=== PATIENT | female | born 1970 | race Caucasian/White ===

== ENCOUNTER 2018-07-15 09:06 | Day surgery (SDC) | payer BC ==
[~2018-07-15] VITALS: Ht 167.6 cm; Wt 87.1 kg
[~2018-07-15 09:06] MED LIST: APAP500T10 PO; LIDOCAINE 1% MDV 20ML VIAL SQ PRN; LR 1,000 ML IV ONE; NAPR-837 PO
[2018-07-15] MEDS ORDERED: BUPIVACAINE HCL 0.25% 30 ML VIAL As Ordered ONE (10:21)
[2018-07-15] MEDS ORDERED: MIDAZOLAM INJ 2 MG/2 ML VIAL (J2250) As Ordered ONE ×2 (10:21→10:23)
[2018-07-15] MEDS ORDERED: fentaNYL 100 MCG/2 ML INJECTION (J3010) As Ordered ONE ×4 (10:21→14:13)
[2018-07-15] MEDS ORDERED: LIDOCAINE 2% INJ 100 MG/5 ML SDV (FOR ANES.) As Ordered ONE (10:22)
[2018-07-15] MEDS ORDERED: ONDANSETRON 4MG/2ML VIAL (J2405) As Ordered ONE (10:22)
[2018-07-15] MEDS ORDERED: dexameTHASONE 4 MG/ML 1ML VIAL (J1100) As Ordered ONE (10:22)
[2018-07-15] MEDS ORDERED: PROPOFOL 200 MG/20 ML VIAL As Ordered ONE (10:22)
[2018-07-15 10:33] LABS: URINE PREG TEST NEGATIVE (NEGATIVE)
[2018-07-15] MEDS ORDERED: MIDAZOLAM INJ 2 MG/2 ML VIAL (J2250) IV ONE (11:00)
[2018-07-15] MEDS ORDERED: fentaNYL 100 MCG/2 ML INJECTION (J3010) IV ONE (11:00)
[2018-07-15] MEDS ORDERED: fentaNYL 100 MCG/2 ML INJECTION (J3010) IV PRN (15:30)
[2018-07-15] MEDS ORDERED: LR 1,000 ML IV SCH (15:45)
[2018-07-15] MEDS ORDERED: oxyCODONE 5MG TAB PO PRN ×2 (15:45)
[2018-07-15] MEDS: NORCO, ANEXSIA 5/325MG TABLET (HYDROcodone/ACETAMINOPHEN) PO PRN ×2 (15:57→16:30)
--- NOTE | 2018-07-15 16:00 | REP ---
Left lower extremity series: 11 views intra op. History: Left subtalar joint arthritis. 3 minutes 51 seconds of fluoroscopy time is reported. Findings: A sequence of 11 last image hold fluoroscopically obtained spot radiographs of the left proximal tib-fib area and left hindfoot document operative subtalar joint fixation. Calcaneal osteotomy. Electronically Signed by Dao Edmond MD 07/15/2018 04:07 P
[2018-07-15] MEDS: HYDROMORPHONE HCL 0.5 MG/ 0.5 ML SYRINGE (J1170 PER 1) IV PRN ×2 (16:05→16:21)
[2018-07-15 20:15] VITALS: BP 119/58
--- NOTE | 2018-07-22 00:28 | RO ---
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 POSTPROCEDURE DIAGNOSIS: Left subtalar joint osteoarthritis with significant valgus hindfoot deformity. PROCEDURE: SURGEON: Leonora De Los Santos MD HEAD OF INTEGRATED MEDIA: FREDDIE Lares ANESTHESIA: General endotracheal with popliteal nerve block. ESTIMATED BLOOD LOSS: 150 mL. COMPLICATIONS: None. IMPLANTS: 6.5 mm cannulated screws times two, augment and bone chips. CONDITION: Stable to recovery. INDICATIONS: José Burroughs is a 48-year-old female who has had significant pain due to longstanding hindfoot valgus deformity and subtalar joint arthritis. And she has failed conservative measures. She presents for elective subtalar arthrodesis and medializing calcaneal osteotomy. Risks and benefits of surgery were discussed with the patient in detail and include but are not limited to infection, damage to nerves and blood vessels, need for additional procedures, continued pain and stiffness. Informed consent was obtained in the office. DESCRIPTION OF PROCEDURE: The patient was met in the preoperative holding area where her right lower extremity was marked as the correct operative side. She underwent a popliteal nerve block. She was taken to the operating room, placed in the supine position on the operating room table. Her bony prominences were well padded. She underwent general anesthesia. Right lower extremity underwent a chlorhexidine scrub. A well-padded tourniquet was applied to the upper thigh. Right lower extremity was prepped and draped in the normal sterile fashion. An official time-out was held where the correct patient, operative site, and operative procedure were verified. Antibiotics were given within 60 minutes prior to incision. After a time-out was held, an incision was made extending from the tip of the fibula in line to the base of the 4th metatarsal in standard sinus tarsi approach. The subtalar joint was approached. There was very minimal cartilage left on both the calcaneal and talar side. This was removed with Lambotte osteotome and a curette. The joint was further penetrated with a 2.0 drill and fish-scaled with a Rains osteotome. There was significant laxity and valgus deformity of the joint. I did attempt to pin this without sliding the heel; however, there was still quite a significant valgus deformity, so the decision was made to proceed with heel slide. First, however, I did obtain bone graft from the proximal tibia. A small incision was made in the region of Gerdy's tubercle. This was localized on AP C-arm view of the knee. A small incision was made, and the anterior compartment was elevated. A 1 x 1 cortical window was made using an osteotome. About 5-6 mL of bone graft was obtained from the proximal tibia. Anterior compartment was closed using #0 Vicryl. Copious irrigation was performed of the wound. Wound was further closed using #3-0 Vicryl and mamadou. Once we had our bone graft, this was placed into the joint along with augment and a small amount of cancellous chips. After the bone graft was placed, I did make an incision over the calcaneus in the region of the heel slide. C-arm was used to verify my incision to begin with. Incision was made with a #15 blade. Soft tissue was elevated off the bone. Two 0.062 K-wires were used to anish my osteotomy site. Osteotomy site was confirmed on C-arm views. These were then removed, and using a saw, the cut was made. It was finished with a large osteotome. I was able to slide the heel approximately 8-10 mm. It was pinned in place. When I was satisfied with the heel slide, the larger pins were used to pin across both the heel slide and into the subtalar joint. These had good position. Two 6.5 mm screws were then placed. I was satisfied with the position of the hardware and the heel. This had been confirmed using the C-arm using AP and mortise views of the ankle along with lateral foot and Mo[place]uma heel views. At this point, the wounds were irrigated. Soft tissues were closed using #3-0 Vicryl and skin was closed using #3-0 nylon. A sterile dressing was applied, and the patient was placed into a well-padded splint. She was extubated and transferred to the recovery room in stable condition. PLAN: The patient will be non-weightbearing on the right lower extremity for 2 months. We will see her back in the office in 1 week for a wound check and splint change. She will be on aspirin for deep vein thrombosis (DVT) prophylaxis. Edited 07/22/2018 radha
== END 2018-07-15 20:15 | disposition home or self-care (01) ==
LOC: M SDC 09:06
PROVIDERS: ATTEND Orthopaedic Surgery
DX: M19.072 Primary osteoarthritis, left ankle and foot (principal); M21.072 Valgus deformity, not elsewhere classified, left ankle; Z96.643 Presence of artificial hip joint, bilateral
CPT/HCPCS: 20900; 28300; 28725; 64445; 76000; 84703; C1713; C1762; J0690; J1100; J1170; J2250; J2405; J3010

== ENCOUNTER → 2018-12-17 | Outpatient (REF) | payer BC ==
[~2018-12-17] MED LIST changes: -LIDOCAINE 1% MDV 20ML VIAL SQ PRN; -LR 1,000 ML IV ONE
== END ==
LOC: M LABDRAW1 15:41
PROVIDERS: ATTEND Orthopaedic Surgery
DX: Z98.1 Arthrodesis status (principal)

== ENCOUNTER → 2019-01-20 | Outpatient (CLI) | payer BC | LOC: M RAD 09:53 | PROVIDERS: ATTEND Orthopaedic Surgery | DX: Z98.1 Arthrodesis status (principal) ==

== ENCOUNTER → 2019-06-09 | Outpatient (REF) | payer BC ==
[2019-06-09 12:54] LABS: PLATELET COUNT, AUTOMATED 313 10^3/uL (150-450)
[2019-06-09 13:13] LABS: BLOOD UREA NITROGEN 21 MG/DL (7-18); CREATININE FOR GFR 0.89 MG/DL (0.55-1.30); GLOMERULAR FILTRATION RATE > 60.0 (>51)
[2019-06-09 13:14] LABS: INR 1.03; PROTHROMBIN TIME 13.2 SECONDS (11.8-14.0)
[2019-06-09 13:15] LABS: PARTIAL THROMBOPLASTIN TIME 30.2 SECONDS (25.0-38.4)
[2019-06-09 13:21] LABS: COLLAGEN EPINEPHRINE 99 SECONDS (74-162)
== END ==
LOC: M LABDRAW1 11:27
PROVIDERS: ATTEND Physician Assistant
DX: M47.817 Spondylosis without myelopathy or radiculopathy, lumbosacral region (principal)